=== PATIENT | male | born 1940 | race Caucasian/White ===

== ENCOUNTER → 2021-02-01 | Day surgery (SDC) | payer OTHER ==
[~2021-02-01] VITALS: Ht 180.3 cm; Wt 80.3 kg
[~2021-02-01] MED LIST: AMLODIPINE BESYL5 MG PO; BISA-LAX5 MG PO; CALCIUM PO; FLUTICASONE; HYDROCODON-ACE1 EAC4 PO; LORATADINE10 MG PO; OMEPRAZOLE20 MG PO; PROAIR HFA8.5 GM INH; STOOL SOFTENER250 MG PO; TRAZODONE HCL100 MG PO; VALACYCLOVIR500 MG PO
== END | disposition home or self-care (01) ==
LOC: OR 05:26
DX: C34.92 Malignant neoplasm of unspecified part of left bronchus or lung (principal); Z95.0 Presence of cardiac pacemaker; Z20.822 Contact with and (suspected) exposure to COVID-19; Z87.891 Personal history of nicotine dependence; J44.9 Chronic obstructive pulmonary disease, unspecified; I12.9 Hypertensive chronic kidney disease with stage 1 through stage 4 chronic kidney disease, or unspecified chronic kidney disease; N18.9 Chronic kidney disease, unspecified; N39.3 Stress incontinence (female) (male)
CPT/HCPCS: 77001; C1769; C1788; J0690; J1100; J1642; J2001; J2370; J2405; J2704; J3010; J7030; J7040; J7120

== ENCOUNTER → 2021-06-05 | Outpatient (CLI) | payer OTHER | LOC: CT 10:21 | DX: C34.32 Malignant neoplasm of lower lobe, left bronchus or lung (principal); J98.4 Other disorders of lung | CPT/HCPCS: 36415; 71260; 82565; Q9967 ==

== ENCOUNTER → 2021-08-20 | Outpatient (CLI) | payer OTHER | LOC: CT 08-10 10:30 | DX: C34.32 Malignant neoplasm of lower lobe, left bronchus or lung (principal); K44.9 Diaphragmatic hernia without obstruction or gangrene; N28.1 Cyst of kidney, acquired | CPT/HCPCS: 36415; 71260; 82565; 84520; Q9967 ==